=== PATIENT | female | born 1980 | race African-American/Black ===

== ENCOUNTER 2024-03-24 12:04 | Observation (INO) | payer OTHER ==
--- NOTE | 2024-03-24 12:43 | RAD REPORT ---
EXAM: Chest Pa And Lat (2 Views) HISTORY: 43 years Female COUGH COMPARISON: None. FINDINGS: LUNGS/PLEURA: The lungs are clear. No pleural effusions or pneumothorax. No pulmonary edema. MEDIASTINUM: The mediastinal silhouette is within normal limits. CARDIAC: The cardiac silhouette is within normal limits. UPPER ABDOMEN: No significant abnormality. BONES: No acute abnormality. LINES/TUBES/OTHER: N/A IMPRESSION: No evidence of acute cardiopulmonary disease.
[2024-03-24] MEDS ORDERED: NA CHLORIDE 0.9% 1,000 ML ONE (13:07)
[2024-03-24] MEDS ORDERED: ONDANSETRON 4 MG/2 ML VIAL ONE (13:07)
[2024-03-24 13:44] LABS: Absolute Lymphocytes (CBC) 0.8 K/uL (0.7-4.9); Absolute Monocytes 0.4 K/uL (0.1-1.3); Absolute Neutrophil 4.4 K/uL (1.8-8.0); Basophils % 0.4 % (0-1.3); Eosinophils % 0.2 % (0-4.4); Hematocrit 39.1 % (36.0-45.0); Hemoglobin 12.3 g/dL (12.0-15.0); Lymphocytes % 14.1 % (15.3-44.8); MCH 26.2 pg (27.0-35.0); MCHC 31.4 g/dL (32.0-36.0); MCV 83.5 fL (80-100); MPV 10.2 fL (7.6-11.3); Monocytes % 7.1 % (3.3-12.3); Neutrophils % 78.2 % (41.7-73.7); Platelets 166 thou/uL (152-406); RBC Red Blood Cell Count 4.68 M/uL (3.86-4.86); Red Cell Distribution Width 14.7 % (12.1-15.2)
[2024-03-24] MEDS ORDERED: IPRATROPIUM BROM 0.5MG/2.5ML ONE (13:45)
[2024-03-24] MEDS ORDERED: METHYLPREDNISOLONE 125 MG INJ ONE (13:45)
[2024-03-24] MEDS ORDERED: CEFTRIAXONE 1000 MG/VIAL ONE (13:45)
[2024-03-24] MEDS ORDERED: FAMOTIDINE 20 MG/2 ML VIAL IV ONE (13:46)
[2024-03-24] MEDS ORDERED: NA CHLORIDE 0.9% 250 ML ONE (13:46)
[2024-03-24] MEDS ORDERED: ACETAMINOPHEN 500 MG TAB ONE (13:46)
[2024-03-24] MEDS ORDERED: AZITHROMYCIN 500 MG INJ IVPB ONE (13:46)
[2024-03-24] MEDS ORDERED: LEVALBUTEROL 1.25 MG/3 ML NEB ONE (13:46)
[2024-03-24 13:52] LABS: Albumin/Globulin Ratio 0.5 (1.1-1.8); Anion Gap 7.6 mEq/L (5.0-15.0); Bilirubin Total 0.4 mg/dL (0.2-1.0); Globulin 5.7 g/dL (2.3-3.5); Potassium 3.6 mEq/L (3.5-5.1); Protein, Total 8.7 g/dL (6.4-8.2); Troponin High Sensitivity 16.2 pg/mL (<58.9)
--- NOTE | 2024-03-24 14:24 | EDPHYS ---
Physician Documentation [facility] Name: Chelsie Mario Age: 43 yrs Sex: Female : 1980 Arrival Date: 03/24/2024 Time: 12:04 Bed 5 Private MD: ED Physician Sree Camarena HPI: 03/24 13:22 This 43 yrs old Black Female presents to ER via Wheelchair with complaints of Shortness barb Of Breath, Vomiting, Anxiety, Congestion. 13:22 The patient has shortness of breath at rest, with light activity. Onset: The barb symptoms/episode began/occurred 5 day(s) ago. Duration: The symptoms are continuous, and are steadily getting worse. The patient's shortness of breath is aggravated by coughing, light activity, supine position. Associated signs and symptoms: Pertinent positives: productive cough, fever, nausea. Severity of symptoms: At their worst the symptoms were moderate in the emergency department the symptoms have improved. The patient has experienced similar episodes in the past, several times. Historical: - Allergies: 12:13 Codeine; ll1 - PMHx: 12:13 Asthma; Bronchitis; ll1 - PSHx: 12:13 None; ll1 - Immunization history:: Adult Immunizations up to date. - Infectious Disease History:: Denies. - Social history:: Smoking status: Patient denies any tobacco usage or history of. - Family history:: not pertinent. ROS: 13:22 Constitutional: Negative for fever, chills, and weight loss, Eyes: Negative for injury, barb pain, redness, and discharge, ENT: Negative for injury, pain, and discharge, Neck: Negative for injury, pain, and swelling, Cardiovascular: Negative for chest pain, palpitations, and edema, Back: Negative for injury and pain, : Negative for injury, bleeding, discharge, and swelling, MS/Extremity: Negative for injury and deformity, Skin: Negative for injury, rash, and discoloration, Neuro: Negative for headache, weakness, numbness, tingling, and seizure, Psych: Negative for depression, anxiety, suicide ideation, homicidal ideation, and hallucinations, Allergy/Immunology: Negative for hives, rash, and allergies, Endocrine: Negative for neck swelling, polydipsia, polyuria, polyphagia, and marked weight changes, Hematologic/Lymphatic: Negative for swollen nodes, abnormal bleeding, and unusual bruising, 13:22 Cardiovascular: Positive for palpitations, 13:22 Respiratory: Positive for cough, hemoptysis, shortness of breath, wheezing, inspiratory, expiratory, 13:22 Abdomen/GI: Positive for nausea and vomiting, 13:22 MS/extremity: Negative for acute changes, Exam: 13:23 Head/Face: Normocephalic, atraumatic. Eyes: Pupils equal round and reactive to light, barb extra-ocular motions intact. Lids and lashes normal. Conjunctiva and sclera are non-icteric and not injected. Cornea within normal limits. Periorbital areas with no swelling, redness, or edema. ENT: Nares patent. No nasal discharge, no septal abnormalities noted. Tympanic membranes are normal and external auditory canals are clear. Oropharynx with no redness, swelling, or masses, exudates, or evidence of obstruction, uvula midline. Mucous membranes moist. Neck: Trachea midline, no thyromegaly or masses palpated, and no cervical lymphadenopathy. Supple, full range of motion without nuchal rigidity, or vertebral point tenderness. No Meningismus. Chest/axilla: Normal chest wall appearance and motion. Nontender with no deformity. No lesions are appreciated. Cardiovascular: Regular rate and rhythm with a normal S1 and S2. No gallops, murmurs, or rubs. Normal PMI, no JVD. No pulse deficits. Abdomen/GI: Soft, non-tender, with normal bowel sounds. No distension or tympany. No guarding or rebound. No evidence of tenderness throughout. Back: No spinal tenderness. No costovertebral tenderness. Full range of motion. Skin: Warm, dry with normal turgor. Normal color with no rashes, no lesions, and no evidence of cellulitis. MS/ Extremity: Pulses equal, no cyanosis. Neurovascular intact. Full, normal range of motion., bilateral aka Neuro: Awake and alert, GCS 15, oriented to person, place, time, and situation. Cranial nerves II-XII grossly intact. Motor strength 5/5 in all extremities. Sensory grossly intact. Cerebellar exam normal. Normal gait. Psych: Awake, alert, with orientation to person, place and time. Behavior, mood, and affect are within normal limits. 13:23 Constitutional: The patient appears febrile, 13:23 Respiratory: the patient does not display signs of respiratory distress, Respirations: normal, no acute changes, Breath sounds: bronchial sounds, that are moderate, are scattered, decreased breath sounds, that are mild, are scattered, rhonchi, that are mild, are scattered, stridor, is not appreciated, + upper airway congestion. wheezing: inspiratory expiratory is heard diffusely, Vital Signs: 12:13 BP 169 / 114; Pulse 109; Resp 20; Temp 100.5; Pulse Ox 95% on R/A; Weight 201.4 kg; ll1 Height 5 ft. 7 in. ; Pain 8/10; 15:00 BP 145 / 84; Pulse 74; Resp 17; Temp 98; Pulse Ox 99% ; rs5 16:35 BP 154 / 88; Pulse 84; Resp 16; Pulse Ox 99% ; rs5 12:13 Body Mass Index 69.54 (201.40 kg, 170.18 cm) ll1 12:13 Pain Scale: Adult ll1 MDM: 12:10 Medical Screening Exam initiated barb 13:24 Differential diagnosis: asthma, Bronchitis CHF exacerbation, Nonspecific abd pain, barb viral gastroenteritis, gastroenteritis, Myocardial Infarction pulmonary edema, Pulmonary Embolism reactive airway disease, Sepsis. Antibiotic administration: Rocephin and Zithromax given. Differential Diagnosis: Obstructed Airway Bronchitis Influenza Upper Respiratory Infection Sinusitis Pharyngitis Asthma Exacerbation Viral Syndrome Pneumonia Tracheal Injury. Immunization status:. Data reviewed: vital signs, nurses notes, lab test result(s), EKG, radiologic studies, plain films. Consideration of Admission/Observation Patient was admitted/placed on observation. Escalation of care including admission/observation considered. I considered the following discharge prescriptions or medication management in the emergency department Medications were administered in the Emergency Department. See MAR. Independent interpretation of the following test(s) in the Emergency Department EKG: See my EKG interpretation above. Test considered but Not performed: Ultrasound NO 2 D ECHO. Historians other than the Patient: Spouse/Significant Other: SPOUSE, PT WELL INFORMED. Care significantly affected by the following chronic conditions: Obesity. 03/24 12:12 Order name: CBC with Diff; Complete Time: 14:18 [facility] 03/24 12:12 Order name: Comprehensive Metabolic Panel; Complete Time: 14:18 [facility] 03/24 12:12 Order name: Troponin High Sensitivity; Complete Time: 14:18 [facility] 03/24 12:12 Order name: D-Dimer; Complete Time: 13:48 [facility] 03/24 12:12 Order name: Flu; Complete Time: 14:18 [facility] 03/24 12:12 Order name: SARS RAPID; Complete Time: 16:45 [facility] 03/24 13:20 Order name: Lipase; Complete Time: 16:45 [facility] 03/24 12:12 Order name: Chest Pa And Lat (2 Views) XRAY; Complete Time: 13:17 [facility] 03/24 13:49 Order name: US Extremity Venous W Compression Kenneth; Complete Time: 16:45 [facility] Administered Medications: 12:30 Drug: NS 0.9% IV 1000 ml IV at 1000 ml once; to be given as a bolus over 60 minutes rs5 Route: IV; Rate: 1000 ml; Site: right wrist; 13:22 Follow up: Response: No adverse reaction; IV Status: Completed infusion; IV Intake: rs5 999ml 12:30 Drug: Ondansetron IVP 4 mg IVP once; over 2 minutes Route: IVP; Site: right wrist; rs5 13:00 Follow up: Response: No adverse reaction; Nausea is decreased rs5 13:35 Drug: Rocephin IV 1 grams IV at per protocol once; Given slow IV push per pharmacy rs5 instructions Route: IV; Rate: per protocol; Site: right wrist; 15:39 Follow up: Response: No adverse reaction; IV Status: Completed infusion; IV Intake: [id number] 13:55 Drug: MethylPrednisoLONE IVP 125 mg IVP once Route: IVP; Site: right wrist; rs5 14:22 Follow up: Response: No adverse reaction rs5 13:55 Drug: Levalbuterol Inhalation 3.75 mg Inhalation once Route: Inhalation; rs5 14:22 Follow up: Response: No adverse reaction rs5 13:55 Drug: Ipratropium Inhalation Aerosol 0.5 mg Inhalation once Route: Inhalation; rs5 14:22 Follow up: Response: No adverse reaction rs5 13:55 Drug: Famotidine IVP 20 mg IVP once; dilute with 10 mL 0.9% NaCl; give over 2 minutes rs5 Route: IVP; Site: right wrist; 14:20 Follow up: Response: No adverse reaction rs5 14:00 Drug: Zithromax IVPB 500 mg IVPB once over 1 hrs; mix in 250 mL NS Route: IVPB; Infused rs5 Over: 1 hrs; Site: right wrist; 15:05 Follow up: Response: No adverse reaction; IV Status: Completed infusion; IV Intake: rs5 250ml 14:30 Drug: Enoxaparin Sub-Q 100 mg Sub-Q once Route: Sub-Q; Site: left lower abdomen; rs5 15:00 Follow up: Response: No adverse reaction rs5 Disposition Summary: 03/24/24 14:24 Hospitalization Ordered Notes: Hospitalization Status: Observation barb Provider: Helder Pemberton cha Location: Telemetry/MedSurg (observation) barb Condition: Stable barb Problem: new barb Symptoms: have improved brab Bed/Room Type: Standard barb Room Assignment: 409(03/24/24 15:16) bd Diagnosis - Morbid (severe) obesity with alveolar hypoventilation barb - Fever, unspecified barb - Acute upper respiratory infection, unspecified barb - Moderate persistent asthma barb - Essential (primary) hypertension barb - Abnormal finding of blood chemistry, unspecified - ELEVATED D-DIMER barb - Vomiting barb Forms: - Medication Reconciliation Form barb - SBAR form barb - Leadership Thank You Letter barb Signatures: Dispatcher [employer] EDMS Deonna Page Corey, MD MD cha Attema, Lee, BINDERY HELPER-C BINDERY HELPER-Cla1 Dirk Corbin, RN RN ll1 Shadi Barnes, RN RN rs5 Corrections: (The following items were deleted from the chart) 12:12 12:12 CBC+H.LAB.BRZ ordered. EDMS EDMS 12:12 12:12 COMPREHENSIVE METABOLIC PANEL+C.LAB.BRZ ordered. EDMS EDMS 12:12 12:12 Troponin High Sensitivity+C.LAB.BRZ ordered. EDMS EDMS 12:12 12:12 D-DIMER+COAG.LAB.BRZ ordered. EDMS EDMS 12:12 12:12 Influenza Screen (A \T\ B)+BA.LAB.BRZ ordered. EDMS EDMS 12:12 12:12 SARS-COV-2 Antigen Rapid+I.LAB.BRZ ordered. EDMS EDMS 12:12 12:12 Chest Pa And Lat (2 Views)+RAD.RAD.BRZ ordered. EDMS EDMS 14:17 13:50 Chest For PE Angio+CT.RAD.BRZ ordered. EDMS EDMS 14:27 14:26 Tobacco abuse counseling formerly [facility] 14:27 14:26 Tobacco use formerly [facility] 15:16 14:24 barb bd
--- NOTE | 2024-03-24 14:24 | ER ---
Nurse's Notes [facility] Name: Chelsie Mario Age: 43 yrs Sex: Female : 1980 Arrival Date: 03/24/2024 Time: 12:04 Bed 5 Private MD: Diagnosis: Morbid (severe) obesity with alveolar hypoventilation;Fever, unspecified;Acute upper respiratory infection, unspecified;Moderate persistent asthma;Essential (primary) hypertension;Abnormal finding of blood chemistry, unspecified-ELEVATED D-DIMER;Vomiting Presentation: 03/24 12:13 Chief complaint: Patient states: Cough, SOB, N/V, fatigue for 6 days. Coronavirus ll1 screen: Client denies travel out of the [place] in the last 14 days. congestion, cough unrelated to allergies, fatigue, fever, headache, nausea, sore throat, vomiting. Client presents with at least one sign or symptom that may indicate coronavirus-19. Standard/surgical mask placed on the client. Ebola Screen: Patient denies travel to an Ebola-affected area in the 21 days before illness onset. Initial Sepsis Screen: Does the patient meet any 2 criteria? No. Patient's initial sepsis screen is negative. Does the patient have a suspected source of infection? No. Patient's initial sepsis screen is negative. Risk Assessment: Do you want to hurt yourself or someone else? Patient reports no desire to harm self or others. Onset of symptoms was March 18, 2024. 12:13 Method Of Arrival: Wheelchair ll1 12:13 Acuity: JESSICA 2 ll1 Triage Assessment: 12:13 General: Appears uncomfortable, Behavior is calm, cooperative, appropriate for age, ll1 Reports fever for feeling ill for fatigue for. Neuro: Reports weakness. Respiratory: Reports cough that is. Respiratory: Reports shortness of breath. Historical: - Allergies: 12:13 Codeine; ll1 - PMHx: 12:13 Asthma; Bronchitis; ll1 - PSHx: 12:13 None; ll1 - Immunization history:: Adult Immunizations up to date. - Infectious Disease History:: Denies. - Social history:: Smoking status: Patient denies any tobacco usage or history of. - Family history:: not pertinent. Screenin:15 [facility] ED Fall Risk Assessment (Adult) History of falling in the last 3 months, rs5 including since admission No falls in past 3 months (0 pts) Confusion or Disorientation No (0 pts) Intoxicated or Sedated No (0 pts) Impaired Gait Yes (1 pt) Mobility Assist Device Used Yes (1 pt) Altered Elimination No (0 pt) Score/Fall Risk Level 0 - 2 = Low Risk Oriented to surroundings, Maintained a safe environment. Nutritional screening: No deficits noted. 12:15 Abuse screen: Denies threats or abuse. Tuberculosis screening: No symptoms or risk rs5 factors identified. Assessment: 12:12 General: Appears in no apparent distress. uncomfortable, Behavior is cooperative, rs5 anxious. Pain: Denies pain. Neuro: Level of Consciousness is awake, alert, obeys commands, Oriented to person, place, time, situation. 12:12 Cardiovascular: Patient's skin is warm and dry. Respiratory: Reports shortness of rs5 breath Airway is patent Respiratory effort is even, unlabored, Respiratory pattern is regular, symmetrical. GI: Abdomen is round non-distended, Abd is soft and non tender X 4 quads. : No signs and/or symptoms were reported regarding the genitourinary system. EENT: No signs and/or symptoms were reported regarding the EENT system. Derm: Skin is intact, Skin is pink, warm \T\ dry. Musculoskeletal: Range of motion: intact in all extremities. 12:12 General: Behavior is. rs5 13:22 Reassessment: Patient and/or family updated on plan of care and expected duration. Pain rs5 level reassessed. Patient is alert, oriented x 3, equal unlabored respirations, skin warm/dry/pink. 14:33 Reassessment: Patient and/or family updated on plan of care and expected duration. Pain rs5 level reassessed. Patient is alert, oriented x 3, equal unlabored respirations, skin warm/dry/pink. 15:45 Reassessment: Patient and/or family updated on plan of care and expected duration. Pain rs5 level reassessed. Patient is alert, oriented x 3, equal unlabored respirations, skin warm/dry/pink. 16:35 Reassessment: Patient and/or family updated on plan of care and expected duration. Pain rs5 level reassessed. Patient is alert, oriented x 3, equal unlabored respirations, skin warm/dry/pink. Vital Signs: 12:13 BP 169 / 114; Pulse 109; Resp 20; Temp 100.5; Pulse Ox 95% on R/A; Weight 201.4 kg; ll1 Height 5 ft. 7 in. ; Pain 8/10; 15:00 BP 145 / 84; Pulse 74; Resp 17; Temp 98; Pulse Ox 99% ; rs5 16:35 BP 154 / 88; Pulse 84; Resp 16; Pulse Ox 99% ; rs5 12:13 Body Mass Index 69.54 (201.40 kg, 170.18 cm) ll1 12:13 Pain Scale: Adult ll1 ED Course: 12:09 Patient arrived in ED. mr 12:10 Sree Camarena MD is Attending Physician. barb 12:15 Triage completed. ll1 12:15 Patient has correct armband on for positive identification. Placed in gown. Bed in low rs5 position. Call light in reach. Side rails up X2. 12:15 No provider procedures requiring assistance completed. Inserted saline lock: 24 gauge rs5 in right wrist, using aseptic technique. 12:21 Arm band placed on Patient placed in an exam room, on a stretcher. ll1 12:28 Shadi Barnes, RN is Primary Nurse. rs5 12:41 Chest Pa And Lat (2 Views) XRAY In Process Unspecified. EDMS 14:20 Helder Pemberton is Hospitalizing Provider. barb 14:59 US Extremity Venous W Compression Kenneth In Process Unspecified. EDMS 16:50 Patient admitted, IV remains in place. rs5 Administered Medications: 12:30 Drug: NS 0.9% IV 1000 ml IV at 1000 ml once; to be given as a bolus over 60 minutes rs5 Route: IV; Rate: 1000 ml; Site: right wrist; 13:22 Follow up: Response: No adverse reaction; IV Status: Completed infusion; IV Intake: rs5 999ml 12:30 Drug: Ondansetron IVP 4 mg IVP once; over 2 minutes Route: IVP; Site: right wrist; rs5 13:00 Follow up: Response: No adverse reaction; Nausea is decreased rs5 13:35 Drug: Rocephin IV 1 grams IV at per protocol once; Given slow IV push per pharmacy rs5 instructions Route: IV; Rate: per protocol; Site: right wrist; 15:39 Follow up: Response: No adverse reaction; IV Status: Completed infusion; IV Intake: [id number] 13:55 Drug: MethylPrednisoLONE IVP 125 mg IVP once Route: IVP; Site: right wrist; rs5 14:22 Follow up: Response: No adverse reaction rs5 13:55 Drug: Levalbuterol Inhalation 3.75 mg Inhalation once Route: Inhalation; rs5 14:22 Follow up: Response: No adverse reaction rs5 13:55 Drug: Ipratropium Inhalation Aerosol 0.5 mg Inhalation once Route: Inhalation; rs5 14:22 Follow up: Response: No adverse reaction rs5 13:55 Drug: Famotidine IVP 20 mg IVP once; dilute with 10 mL 0.9% NaCl; give over 2 minutes rs5 Route: IVP; Site: right wrist; 14:20 Follow up: Response: No adverse reaction rs5 14:00 Drug: Zithromax IVPB 500 mg IVPB once over 1 hrs; mix in 250 mL NS Route: IVPB; Infused rs5 Over: 1 hrs; Site: right wrist; 15:05 Follow up: Response: No adverse reaction; IV Status: Completed infusion; IV Intake: rs5 250ml 14:30 Drug: Enoxaparin Sub-Q 100 mg Sub-Q once Route: Sub-Q; Site: left lower abdomen; rs5 15:00 Follow up: Response: No adverse reaction rs5 Medication: 15:00 VIS not applicable for this client. rs5 Intake: 13:22 IV: 999ml; Total: 999ml. rs5 15:05 IV: 250ml; Total: 1249ml. rs5 15:39 IV: 50ml; Total: 1299ml. rs5 Outcome: 14:24 Decision to Hospitalize by Provider. barb 16:50 Admitted to Med/surg rs5 16:50 Condition: stable rs5 16:50 Instructed on the need for admit, Demonstrated understanding of instructions, 16:51 Patient left the ED. rs5 Signatures: Dispatcher [employer] EDMS Sree Camarena MD MD cha Rivera, Mary, Reg Reg mr Dirk Corbin, RN RN ll1 Shadi Barnes, DULCE MARIA RN rs5 Corrections: (The following items were deleted from the chart) 15:39 14:01 Response: No adverse reaction; IV Status: Completed infusion; IV Intake: 100ml rs5rs5 18:02 17:40 BP 154 / 88; Pulse 84bpm; Resp 16bpm; Pulse Ox 99%; rs5 rs5 18:03 12:12 General: Appears in no apparent distress. uncomfortable, Behavior is calm, rs5 cooperative, rs5
[2024-03-24] MEDS ORDERED: ENOXAPARIN 100 MG/ML SYR SQ ONE (15:18)
--- NOTE | 2024-03-24 15:39 | P.HP ---
Certification for Inpatient Patient admitted to: Observation With expected LOS: <2 Midnights Patient will require the following post-hospital care: None Practitioner: I am a practitioner with admitting privileges, knowledge of patient current condition, hospital course, and medical plan of care. Services: Services provided to patient in accordance with Admission requirements found in Title 42 Section 412.3 of the Code of Federal Regulations Patient History Date of Service: 03/24/24 Reason for admission: Asthma exacerbation, nausea and vomiting History of Present Illness: 43-year-old female with history of asthma/bronchitis, anxiety presents emergency department with for chief complaint of shortness of breath, cough and nausea and vomiting for the last 5 days. She reports that her was recently ill with cold-like symptoms but has gotten better. Patient was evaluated in the ER her labs were significant for a D-dimer of 0.644 glucose of 116 chest x-ray is negative for acute findings, venous Doppler of the lower extremities was performed which was negative for DVT. Patient still with persistent nausea, wheezing despite treatment in ED, ED provider wishes to admit under observation for further management of asthma exacerbation, nausea and vomiting. - Past Medical/Surgical History -: Asthma/bronchitis -: Anxiety -: None Psychosocial/ Personal History: Lives at home with her - Social History Alcohol use: No CD- Drugs: No Caffeine use: Yes Place of Residence: Home Review of Systems 10-point ROS is otherwise unremarkable Respiratory: Cough, Shortness of Breath Gastrointestinal: Nausea, Vomiting Physical Examination - Physical Exam General: Alert, In no apparent distress, Oriented x3 HEENT: Atraumatic, PERRLA, EOMI Neck: Supple, 2+ carotid pulse no bruit, No LAD, Without JVD or thyroid abnormality Respiratory: Diminished, Expiratory wheezes Cardiovascular: Regular rate/rhythm, Normal S1 S2 Gastrointestinal: Normal bowel sounds, No tenderness Musculoskeletal: No tenderness Integumentary: No rashes Neurological: Normal speech, Normal strength at 5/5 x4 extr - Studies Laboratory Data (last 24 hrs) 03/24/24 03/24/24 13:26 13:26 WBC 5.60 Hgb 12.3 Hct 39.1 Plt Count 166 Sodium 138 Potassium 3.6 BUN 14 Creatinine 0.72 Glucose 116 H Total Bilirubin 0.4 AST 15 ALT 25 Alkaline Phosphatase 72 Microbiology Data (last 24 hrs): 03/24/24 13:00 Nasopharnyx Influenza Type A Antigen Screen - Final 03/24/24 13:00 Nasopharnyx Influenza Type B Antigen Screen - Final Assessment and Plan - Plan Assessment: Asthma with exacerbation Nausea and vomiting Anxiety Plan: Asthma with exacerbation Continue p.o. steroids As needed nebulizer treatments Monitor need for supplemental oxygen As needed cough medications Has albuterol inhalers, nebulizers at home Nausea and vomiting Start full liquid diet Reevaluate in the a.m. Abdomen soft and nontender on exam unable to obtain CT abdomen pelvis or CT PE protocol given body habitus Anxiety Continue home medications DVT PPX: Lovenox Code status: Full Discharge Plan: Home Plan to discharge in: 24 Hours - Advance Directives Does patient have a Living Will: No Does patient have a Durable POA for Healthcare: No - Code Status/Comfort Care Code Status Assessed: Yes (Full code) Critical Care: No Time Spent Managing Pts Care (In Minutes): 62
--- NOTE | 2024-03-24 16:02 | RAD REPORT ---
EXAMINATION: US LOWER EXTREMITY VENOUS DOPPLER BILATERAL CLINICAL INDICATION: Female, 43 years old.Pain;Swelling TECHNIQUE: Complete bilateral duplex sonography of the lower extremity veins was performed. The exami nation included compression for vein patency, color Doppler imaging and flow augmentation in response to distal compression of the distal external iliac, common femoral, femoral, popliteal, abi corry, tibial and great saphenous veins. [id number]. COMPARISON: No prior exams FINDINGS: Duplex sonography imaging demonstrates all deep examined to be fully compressible with spontaneous, p hasic and augmented flow bilaterally. IMPRESSION: No evidence of deep venous thrombosis seen in either lower extremity.
[2024-03-24 16:21] LABS: SARS-CoV-2 Antigen CONTROL BLUE LINE VIS/BG OK; SARS-CoV-2 Antigen Rapid Res Negative (Negative)
[2024-03-24] MEDS ORDERED: ALBUTEROL 2.5 MG/3 ML NEB SOL NEB PRN (16:53)
[2024-03-24] MEDS ORDERED: ACETAMINOPHEN 325 MG TABLET PO PRN (16:53)
[2024-03-24] MEDS ORDERED: ALPRAZOLAM 0.25 MG TABLET PO PRN (16:53)
[2024-03-24] MEDS ORDERED: ONDANSETRON 4 MG/2 ML VIAL IV PRN (16:53)
[2024-03-24] MEDS ORDERED: FLU (Fluarix Triv) TS24-25(6MOS UP)/PF 45 MCG/0.5 ML Syringe IM ONE (17:45)
[2024-03-24] MEDS: ENOXAPARIN 40 MG/0.4 ML SQ SCH (18:13)
[2024-03-24] MEDS: NA CHLORIDE 0.9% 1,000 ML IV SCH (18:13)
[2024-03-24] MEDS: predniSONE 10 MG TAB PO SCH (21:00)
[2024-03-24] MEDS: TRAZODONE 50 MG TABLET PO SCH (21:00)
[2024-03-25 03:05] VITALS: BMI 69.2
[2024-03-25 08:21] LABS: Absolute Monocytes 0.4 K/uL (0.1-1.3); Absolute Neutrophil 3.7 K/uL (1.8-8.0); Basophils % 0.2 % (0-1.3); Hematocrit 38.3 % (36.0-45.0); Hemoglobin 12.4 g/dL (12.0-15.0); Lymphocytes % 19.3 % (15.3-44.8); MCH 26.6 pg (27.0-35.0); MCHC 32.2 g/dL (32.0-36.0); MCV 82.6 fL (80-100); MPV 10.3 fL (7.6-11.3); Neutrophils % 73.5 % (41.7-73.7); Nucleated Red Blood Cells % 0.1 % (0-0); Platelets 166 thou/uL (152-406); RBC Red Blood Cell Count 4.64 M/uL (3.86-4.86); Red Cell Distribution Width 15.1 % (12.1-15.2)
[2024-03-25] MEDS: lisinopriL 5 MG TAB PO ONE (10:47)
[2024-03-25] MEDS: BENZONATATE 100 MG CAP PO PRN (10:52)
--- NOTE | 2024-03-25 13:17 | P.DS ---
Admission Date: 03/24/24 Discharge Date: 03/25/24 Disposition: ROUTINE DISCHARGE Discharge Condition: GOOD Reason for Admission: Asthma exacerbation, nausea and vomiting Brief History of Present Illness: 43-year-old female with history of asthma/bronchitis, anxiety presents emergency department with for chief complaint of shortness of breath, cough and nausea and vomiting for the last 5 days. She reports that her was recently ill with cold-like symptoms but has gotten better. Patient was evaluated in the ER her labs were significant for a D-dimer of 0.644 glucose of 116 chest x-ray is negative for acute findings, venous Doppler of the lower extremities was performed which was negative for DVT. Patient still with persistent nausea, wheezing despite treatment in ED, ED provider wishes to admit under observation for further management of asthma exacerbation, nausea and vomiting. Hospital Course: Assessment: Asthma with exacerbation Nausea and vomiting Anxiety Patient was admitted to the hospital for an asthma exacerbation with associated nausea and vomiting. She was treated with oral steroids, antitussives, antiemetics and had significant improvement in her symptoms. She has been tolerating a diet, lungs are now clear and she is on room air. She is stable for discharge outpatient follow-up at this time. During her hospitalization it was noted that her blood pressure was elevated in the 150s to 180s systolic. She reports that she does note no previous history of high blood pressure. We will start her on a low-dose of amlodipine which we sent to her pharmacy and she was instructed to monitor her blood pressure closely at home as well as following up closely outpatient with her PCP for further titration of blood pressure medicine as necessary. Patient reports having albuterol in both nebulizer and inhaler form available to her at home, prescription sent for antitussives, short course of oral steroids, as needed nausea medications. Vital Signs/Physical Exam: Temp Pulse Resp BP Pulse Ox 98.1 F 74 74 H 188/97 H 95 03/25/24 08:00 03/25/24 10:47 03/25/24 08:00 03/25/24 10:47 03/25/24 08:00 General: Alert, In no apparent distress, Oriented x3 HEENT: Atraumatic, PERRLA Neck: Supple, JVD not distended Respiratory: Clear to auscultation bilaterally, Normal air movement Cardiovascular: Regular rate/rhythm, Normal S1 S2 Gastrointestinal: Normal bowel sounds, No tenderness Musculoskeletal: No tenderness Integumentary: No rashes Neurological: Normal speech, Normal affect Laboratory Data at Discharge: WBC 5.10 thou/uL (4.3-10.9) 03/25/24 07:41 Hgb 12.4 g/dL (12.0-15.0) 03/25/24 07:41 Hct 38.3 % (36.0-45.0) 03/25/24 07:41 Plt Count 166 thou/uL (152-406) 03/25/24 07:41 Sodium 137 mEq/L (136-145) 03/25/24 07:41 Potassium 4.0 mEq/L (3.5-5.1) 03/25/24 07:41 BUN 16 mg/dL (7-18) 03/25/24 07:41 Creatinine 0.62 mg/dL (0.55-1.02) 03/25/24 07:41 Glucose 132 mg/dL (74-106) H 03/25/24 07:41 Total Bilirubin 0.4 mg/dL (0.2-1.0) 03/24/24 13:26 AST 15 U/L (15-37) 03/24/24 13:26 ALT 25 U/L (13-56) 03/24/24 13:26 Alkaline Phosphatase 72 U/L (45-117) 03/24/24 13:26 Lipase 15 U/L (13-75) 03/24/24 13:26 Home Medications: Cetirizine HCl [Zyrtec] 10 mg PO 1X PRN 03/24/24 Norethindrone 0.35 mg PO 1X 03/24/24 Trazodone [Desyrel*] 50 mg PO 1X 03/24/24 Amlodipine [Norvasc*] 5 mg PO DAILY #30 tab 03/25/24 Benzonatate [Tessalon Perle*] 100 mg PO TID PRN #25 cap 03/25/24 Ondansetron [Zofran] 4 mg PO Q6H PRN #10 tab 03/25/24 predniSONE [Deltasone*] 10 mg PO BID 5 Days #10 tab 03/25/24 New Medications: predniSONE [Deltasone*] 10 mg PO BID 5 Days #10 tab Amlodipine [Norvasc*] 5 mg PO DAILY #30 tab Benzonatate [Tessalon Perle*] 100 mg PO TID PRN #25 cap PRN Reason: Cough Ondansetron [Zofran] 4 mg PO Q6H PRN #10 tab PRN Reason: Nausea / Vomiting Physician Discharge Instructions: Patient was admitted to the hospital for an asthma exacerbation with associated nausea and vomiting. She was treated with oral steroids, antitussives, antiemetics and had significant improvement in her symptoms. She has been tolerating a diet, lungs are now clear and she is on room air. She is stable for discharge outpatient follow-up at this time. During her hospitalization it was noted that her blood pressure was elevated in the 150s to 180s systolic. She reports that she does note no previous history of high blood pressure. We will start her on a low-dose of amlodipine which we sent to her pharmacy and she was instructed to monitor her blood pressure closely at home as well as following up closely outpatient with her PCP for further titration of blood pressure medicine as necessary. Patient reports having albuterol in both nebulizer and inhaler form available to her at home, prescription sent for antitussives, short course of oral steroids, as needed nausea medications. Diet: Regular Activity: Ad thad Followup: Felice Marina MD [ACTIVE - CAN ADMIT] - 1-2 Weeks NONE,NONE [Primary Care Provider] - 1-2 Weeks Time spent managing pt's care (in minutes): 36
[2024-03-25 13:55] VITALS: BP 164/89; TEMP 98
[2024-03-25 13:58] VITALS: O2SAT 98
[2024-03-26] MEDS ORDERED: lisinopriL 5 MG TAB PO ONE (10:30)
== END 2024-03-25 14:12 | disposition home or self-care (01) ==
LOC: ER 12:04 → ERHOLD 15:13 → 4TH 16:31
PROVIDERS: ADMIT Hospitalist; ATTEND Hospitalist
DX: J44.1 Chronic obstructive pulmonary disease with (acute) exacerbation (principal); R11.2 Nausea with vomiting, unspecified; F41.9 Anxiety disorder, unspecified; R05.9 Cough, unspecified; R03.0 Elevated blood-pressure reading, without diagnosis of hypertension; Z11.52 Encounter for screening for COVID-19
CPT/HCPCS: 96365; 96361; 85025 ×2; 80048; 36415; 85379; 84484; 83690; 80053; 87804 ×2; 71046; 93970; 94760; 96375; 96372; 99285; 87811; J7512; J1650 ×3; J7614; J7644; J2919; J2405; J7050; J7030 ×3; J0696; G0378